=== PATIENT | male | born 1965 | race Caucasian/White ===

== ENCOUNTER → 2016-06-28 | Day surgery (SDC) | payer SELFPAY ==
[~2016-06-28] VITALS: Ht 175.3 cm; Wt 73.3 kg
[~2016-06-28] MED LIST: BENTYL10 MG PO; FEROSUL325 MG PO; PROTONIX40 MG PO
== END | disposition disaster alternative care site (69) ==
LOC: GPOC 06-26 08:00 → GEND 07:10 → GPOC 08:00
PROC: 0DJ08ZZ Inspection of Upper Intestinal Tract, Via Natural or Artificial Opening Endoscopic (ICD-10-PCS; principal; 2016-06-28)
DX: K74.60 Unspecified cirrhosis of liver (principal); I85.10 Secondary esophageal varices without bleeding; B19.20 Unspecified viral hepatitis C without hepatic coma; Z98.890 Other specified postprocedural states
CPT/HCPCS: J2001; J7030

== ENCOUNTER → 2016-12-27 | Day surgery (SDC) | payer SELFPAY ==
[~2016-12-27] VITALS: Ht 175.3 cm; Wt 77.5 kg
== END | disposition disaster alternative care site (69) ==
LOC: GPOC 12-22 10:00 → GEND 08:38
PROC: 0DJD8ZZ Inspection of Lower Intestinal Tract, Via Natural or Artificial Opening Endoscopic (ICD-10-PCS; principal; 2016-12-27)
PROC: 06L34CZ Occlusion of Esophageal Vein with Extraluminal Device, Percutaneous Endoscopic Approach (ICD-10-PCS; 2016-12-27)
DX: Z12.11 Encounter for screening for malignant neoplasm of colon (principal); K64.8 Other hemorrhoids; K74.60 Unspecified cirrhosis of liver; I85.10 Secondary esophageal varices without bleeding; K76.6 Portal hypertension; K31.89 Other diseases of stomach and duodenum; R16.1 Splenomegaly, not elsewhere classified; D69.6 Thrombocytopenia, unspecified; Z79.899 Other long term (current) drug therapy; Z86.19 Personal history of other infectious and parasitic diseases; Z98.890 Other specified postprocedural states
CPT/HCPCS: J2001; J7030